=== PATIENT | male | born 1970 | race Two or more races ===

== ENCOUNTER 2022-11-28 08:11 | Day surgery (SDC) | payer SELFPAY ==
[~2022-11-28 08:11] MED LIST: Lactated Ringers 1,000 ML IV SCH
[2022-11-28] MEDS ORDERED: Lidocaine 2% 5 ML SDV ONE (09:54)
[2022-11-28] MEDS ORDERED: Propofol 200 MG/20 ML SDV ONE (09:54)
[2022-11-28] MEDS ORDERED: Lactated Ringers 1,000 ML IV SCH (10:30)
== END 2022-11-28 11:05 | disposition home or self-care (01) ==
LOC: MW.SDS 08:11
PROVIDERS: ATTEND Surgery
DX: Z12.11 Encounter for screening for malignant neoplasm of colon (principal); K63.5 Polyp of colon; E66.01 Morbid (severe) obesity due to excess calories; J45.909 Unspecified asthma, uncomplicated; G47.30 Sleep apnea, unspecified; Z79.899 Other long term (current) drug therapy; Z68.41 Body mass index [BMI] 40.0-44.9, adult
CPT/HCPCS: 45380; J2704; J7120; 00811; J3490